=== PATIENT | male | born 1965 | race Caucasian/White ===

== ENCOUNTER → 2019-06-02 | Outpatient (CLI) | payer BC ==
--- NOTE | 2019-06-03 08:41 | XR ---
EXAMINATION TYPE: XR foot complete RT DATE OF EXAM: 06/02/2019 COMPARISON: NONE HISTORY: Pain TECHNIQUE: Three views are submitted. FINDINGS: The osseous structures are intact. There is no acute fracture or dislocation. Joint spaces are p reserved. Tiny plantar calcaneal spur. IMPRESSION: 1. No acute osseous abnormality. There is a tiny plantar calcaneal spur
== END | disposition home or self-care (01) ==
LOC: RADXRYALE 16:15
PROVIDERS: ATTEND Physician Assistant Medical
DX: M77.31 Calcaneal spur, right foot (principal)

== ENCOUNTER → 2021-01-10 | Outpatient (CLI) | payer BC ==
--- NOTE | 2021-01-10 21:51 | CTL ---
EXAMINATION TYPE: CT Low Dose Lung DATE OF EXAM ORDERED: 01/10/2021 HISTORY: Personal history of tobacco use. Lung cancer screening CT DLP: 123.[address] CTDI: 3.5 mGy Automated exposure control for dose reduction was used. SCREENING VISIT: Initial COMPARISON: None TECHNIQUE: Low dose computed tomography scan was performed through the chest at 1 mm thick sections a nd reconstructed images in the coronal plane at [address] DIAGNOSTIC QUALITY: Satisfactory FINDINGS: LUNG NODULES: None. LUNGS: COPD: Severity: Mild Fibrosis: Severity: None Lymph nodes: None Other findings: None RIGHT PLEURAL SPACE: Effusion: None Calcification: None Thickening: None Pneumothorax: None LEFT PLEURAL SPACE: Effusion: None Calcification: None Thickening: None Pneumothorax: None HEART: Heart Size: Normal Coronary calcification: Moderate Pericardial effusion: None OTHER FINDINGS: Upper abdomen: Normal Bony thorax: Normal Supraclavicular region: Normal Other: Ascending thoracic aorta the level of the main pulmonary artery is 3.4 cm. Main pulmonary adriano ry the bifurcation is 2.4 cm. IMPRESSION: Negative CT chest CT LUNG RAD AND CT CHEST RECOMMENDATION: Lung-Rad 1 Negative: Continue annual screening with LDCT in 12 months. S Modifier (other clinically significant findings): None
== END | disposition home or self-care (01) ==
LOC: RADCTMAIN 16:46
PROVIDERS: ATTEND Family Medicine
DX: Z12.2 Encounter for screening for malignant neoplasm of respiratory organs (principal); Z87.891 Personal history of nicotine dependence
CPT/HCPCS: 71271

== ENCOUNTER → 2023-12-13 | Outpatient (CLI) | payer BC, OTHER ==
--- NOTE | 2023-12-13 15:57 | CTL ---
EXAMINATION TYPE: CT Low Dose Lung DATE OF EXAM ORDERED: 12/13/2023 HISTORY: Lung cancer screening CT DLP: 129.[address] CTDI: 3.4 mGy Automated exposure control for dose reduction was used. COMPARISON: 01/10/2021 TECHNIQUE: Low dose computed tomography scan was performed through the chest at 1 mm thick sections a nd reconstructed images in multiple planes at 1 mm and [address] DIAGNOSTIC QUALITY: Satisfactory FINDINGS: There are [id number] emphysematous changes predominantly paraseptal emphysema in the upper lobe s. There are a few stable scattered micronodules. There are no new or suspicious lung mass or nodule. There is stable mild interstitial density and groundglass density in the right upper lobe anteriorly There is no airspace consolidation. There is no pleural effusion or pneumothorax. The great vessels chest are normal and there is no mediastinal, hilar or axillary adenopathy. Limited scanning through the upper abdomen reveals no gross abnormality. No focal osseous lesions are seen. IMPRESSION: 1. Lung RADS category 2 benign findings. Continue routine screening at yearly intervals. 2. Mild to moderate emphysematous changes. 3. No acute cardiopulmonary disease.
== END | disposition home or self-care (01) ==
LOC: RADCTMAIN 14:48
PROVIDERS: ATTEND Family Medicine
DX: Z12.2 Encounter for screening for malignant neoplasm of respiratory organs (principal); F17.210 Nicotine dependence, cigarettes, uncomplicated
CPT/HCPCS: 71271

== ENCOUNTER 2024-09-23 09:04 | Day surgery (SDC) | payer BC ==
[2024-09-21 12:30] VITALS: BMI 27.1
[~2024-09-23 09:04] MED LIST: LIDOCAINE 1% (10MG/ML) FOR IV START INTRADERMA PRN
[2024-09-23 09:51] VITALS: TEMP 97.7
[2024-09-23] MEDS: LACTATED RINGERS 1,000 ML IV ONE (09:51)
[2024-09-23] MEDS: LACTATED RINGERS 1,000 ML IV SCH (09:53)
[2024-09-23] MEDS ORDERED: PROPOFOL 10 MG/ML 20 ML VIAL IV ONE (10:27)
--- NOTE | 2024-09-23 10:42 | P.PCN ---
Date of Procedure: 09/23/24 Procedure(s) Performed: BRIEF HISTORY: Patient is a 59-year-old pleasant white male scheduled for an elective colonoscopy as a part of screening for colon cancer and prior history of colon polyps. Last colonoscopy was 9 years ago. PROCEDURE PERFORMED: Colonoscopy with snare polypectomy. PREOPERATIVE DIAGNOSIS: Screening for colon cancer/history of colon polyps. IV sedation per Anesthesia. PROCEDURE: After informed consent was obtained, the patient, was brought into the endoscopy unit. IV sedation was administered by Anesthesia under continuous monitoring. Digital rectal examination was normal. Initially the Olympus CF-160 flexible video colonoscope was then inserted in the rectum, gradually advanced into the cecum without any difficulty. Careful examination was performed as the scope was gradually being withdrawn. Ileocecal valve and the appendiceal orifice were visualized and appeared normal. Prep was excellent. Mucosa of the cecum, ascending colon, appeared normal. In the transverse colon there was a 5 mm and a 6 mm polyp removed by cold snare polypectomy. Rest of the transverse colon, descending colon, sigmoid colon, and rectum appeared normal. Moderate sigmoid diverticulosis. Retroflexion was performed in the rectum and grade 2 internal hemorrhoids were seen. The patient tolerated the procedure well. IMPRESSION: 5 mm and 6 mm transverse colon polyp status post cold snare polypectomy Moderate sigmoid diverticulosis Grade 2 internal hemorrhoids RECOMMENDATIONS: Findings of this examination were discussed with the patient as well as his family. He was advised to follow-up with the biopsy results. The biopsy reveals adenoma he can have repeat colonoscopy in 5 years.
[2024-09-23 11:00] VITALS: BP 116/74; PULSE 69; RESP 19
== END 2024-09-23 11:14 | disposition home or self-care (01) ==
LOC: ORWHC2ENDO 09:04
PROVIDERS: ATTEND Internal Medicine Gastroenterology
DX: Z12.11 Encounter for screening for malignant neoplasm of colon (principal); D12.3 Benign neoplasm of transverse colon; K64.1 Second degree hemorrhoids; K57.30 Diverticulosis of large intestine without perforation or abscess without bleeding; I10 Essential (primary) hypertension; E78.5 Hyperlipidemia, unspecified; F17.210 Nicotine dependence, cigarettes, uncomplicated; F12.90 Cannabis use, unspecified, uncomplicated; F32.A Depression, unspecified; F41.9 Anxiety disorder, unspecified; Z89.529 Acquired absence of unspecified knee; Z88.6 Allergy status to analgesic agent; Z88.5 Allergy status to narcotic agent; Z79.02 Long term (current) use of antithrombotics/antiplatelets; Z79.899 Other long term (current) drug therapy; Z89.2 Acquired absence of upper limb above wrist
CPT/HCPCS: 45385; J2704; 88305

== ENCOUNTER → 2024-12-14 | Outpatient (CLI) | payer BC ==
--- NOTE | 2024-12-14 16:44 | CTL ---
EXAMINATION TYPE: CT Low Dose Lung DATE OF EXAM ORDERED: 12/14/2024 COMPARISON: CT Low Dose Lung 12/13/2023, 01/10/2021 CLINICAL INDICATION: Male, 59 years old with history of Z12.2 ENCNTR SCREEN FOR MA Z87.891 NICOTINE D EPEND; [facility], Encounter screening for malignancy, nicotine dependence, Lung cancer screening, History o f Smoking/tobacco use. TECHNIQUE: Low dose computed tomography scan was performed through the chest at 1 mm thick sections a nd reconstructed images in multiple planes at 1 mm and [address] DLP: 111.[address] CTDI: 3.30 mGy Automated exposure control for dose reduction was used. CT DIAGNOSTIC QUALITY: Satisfactory FINDINGS: Nodules: Stable anterior right midlung 3.2 mm pulmonary nodule (series 6, image 29). Stable posterior left upper lung calcified granuloma measuring up to 3 mm. No new or enlarging pulmonary nodules. LUNGS: COPD: Severity: Mild paraseptal and centrilobular emphysematous changes. Fibrosis: Severity: None Lymph nodes: None Other findings: None RIGHT PLEURAL SPACE: Effusion: None Calcification: None Thickening: None Pneumothorax: None LEFT PLEURAL SPACE: Effusion: None Calcification: None Thickening: None Pneumothorax: None HEART: Heart Size: Normal Coronary Calcification: Moderate, most pronounced along the LAD. Pericardial Effusion: None OTHER FINDINGS: Upper abdomen: None Bony thorax: Right shoulder arthropathy. Supraclavicular region: None Other: None IMPRESSION: 1. Couple of stable pulmonary nodules measuring less than 4 mm dating back to 2020. No new or enlarg ing pulmonary nodules. 2. Mild emphysematous changes. CT LUNG RAD AND CT CHEST RECOMMENDATION: Lung-Rad 2 Benign Appearance or Behavior: Continue annual sc reening with LDCT in 12 months. S Modifier (other clinically significant findings): None [facility], , 12/14/2024 4:41 PM
== END | disposition home or self-care (01) ==
LOC: RADCTMAIN 15:35
PROVIDERS: ATTEND Family Medicine
DX: Z12.2 Encounter for screening for malignant neoplasm of respiratory organs (principal); J43.2 Centrilobular emphysema; R91.8 Other nonspecific abnormal finding of lung field; Z87.891 Personal history of nicotine dependence
CPT/HCPCS: 71271